=== PATIENT | female | born 1955 | race Caucasian/White ===

== ENCOUNTER 2016-11-23 09:25 | Emergency (ER) | payer OTHER ==
[~2016-11-23] VITALS: Ht 165.1 cm; Wt 88.6 kg
[~2016-11-23 09:25] MED LIST: ASPI-973 PO; BUSP30TA2 PO; INSLIS SUBQ; INSU100V7 SUBQ; LISI-610 PO; LORA10CA PO; MULT-1018 PO; OMEG-38 PO; OMPR20CCR PO
[2016-11-23 09:35] VITALS: BP 137/86; PULSE 103; RESP 16; O2SAT 99
--- NOTE | 2016-11-23 09:59 | ED.REPORT ---
HPI-General Illness Date of Service November 23, 2016 ED Provider: Kwabena Hughes DO Pt is a 61 y.o. female with a hx of DM, GERD, partial pancreatectomy, splenectomy, cholecystectomy, gastric bypass, HTN, and HLD who presents to the ED c/o three episodes of hematochezia onset 12 hours ago. Pt describes the color as a deep red, she states similar to her menses. She denies abdominal and rectal pain. She also reports that her DM has been uncontrolled recently and she has recorded elevated BG's for the past few days. She reports taking 1 baby ASA daily. Nursing Notes Stated Complaint: BLOODY STOOL Chief Complaint: Female Abdominal Pain Nursing Notes Reviewed: Yes Allergies: Coded Allergies: Penicillins (Verified Allergy, Unknown, nausea, 07/10/15) Uncoded Allergies: SOME TAPES, PAPER OK (Adverse Reaction, Unknown, 01/07/06) Scheduled Aspirin (Aspirin) 81 Mg Tablet 81 MG PO DAILY Buspirone (Buspirone) 30 Mg Tablet 30 MG PO DAILY Insulin Glargine (Lantus U100 Insulin Vial) 100 Unit/Ml Vial 20 UNIT SUBQ am Insulin Glargine (Lantus U100 Insulin Vial) 100 Unit/Ml Vial 5 UNIT SUBQ HS Insulin Human Lispro (HumaLOG U100 Insulin Vial) 100 Unit/Ml Unit 4 UNIT SUBQ HS Check blood sugars before meals and at bedtime. Use correction factor only before meals. Blood Sugar Lispro Correction: <151, 0 units; 151-175, 1 unit; 176-200, 2 units; 201-225, 3 units; 226-250, 4 units; 251-275, 5 units; 276-300 , 6 units; 301-325, 7 units; 326-350, 8 units; 351-375, 9 units; 376-400, 10 units; >400, 12 units. Lisinopril (Zestril) 10 Mg Tablet 10 MG PO DAILY Loratadine (Claritin) 10 Mg Capsule 10 MG PO DAILY Multivitamin (Multi Vitamin Daily) 1 Each Tablet 1 EACH PO DAILY [place]-3/Dha/Epa/Fish Oil (Fish Oil 1,000 mg Softgel) 1 Each Capsule 1 EACH PO DAILY Omeprazole (Prilosec) 20 Mg Capcr 20 MG PO DAILY Scheduled PRN Insulin Human Lispro (HumaLOG U100 Insulin Vial) 100 Unit/Ml Unit 2-4 UNIT SUBQ am PRN PRN per sliding scale Check blood sugars before meals and at bedtime. Use correction factor only before meals. Blood Sugar Lispro Correction: <151, 0 units; 151-175, 1 unit; 176-200, 2 units; 201-225, 3 units; 226-250, 4 units; 251-275, 5 units; 276-300 , 6 units; 301-325, 7 units; 326-350, 8 units; 351-375, 9 units; 376-400, 10 units; >400, 12 units. General Time Seen by MD: 09:58 Chief Complaint Other (Hematochezia) Hx Obtained From: Patient Arrived By: Walk-in Sudden in Onset?: Yes Onset Occurred: 9 - 12 hours ago Symptom Duration: Since onset Severity: Current: No pain currently Severity: Maximum: No pain Recent Healthcare: No recent doctor visit, No recent hospitalization Similar Sx Previous: No Past Medical History Past Medical History Reports: Diabetes mellitus, GERD, Hyperlipidemia, Hypertension Reports: Depression Past Surgical History Partial pancreatectomy Splenectomy Hernia Left shoulder Reports: Cholecystectomy Reports: Gastric bypass Smoking History Never Smoker Review of Systems Elevated BG Full Review of Systems GI: Reports: Diarrhea, Hematochezia, Denies: Abdominal pain, Rectal pain Complete sys rev & neg: except as marked. Physical Exam Vital Signs Vital Signs Date Time Temp Pulse Resp B/P Pulse Ox O2 Delivery O2 Flow Rate FiO2 11/23/16 13:29 36.6 103 16 115/86 99 Room Air 11/23/16 12:27 115/86 11/23/16 12:26 94/61 116/81 11/23/16 09:35 36.6 103 16 137/86 99 Room Air Initial VS: Reviewed Head / Eyes: Atraumatic, Normocephalic, PERRL Extremities: Vascular intact, Neuro intact Skin: Warm, Dry, No cyanosis Neurologic: Alert, Oriented, Nonfocal Psychiatric: Mood/affect normal, Behavior normal, Normal thought content General/Constitutional: Awake, Alert, No acute distress, Well appearing, Well developed, Well hydrated, Well nourished, Not toxic appearing Respiratory / Chest: Atraumatic, Breath sounds NL, Breath sounds = bilat, No respiratory distress Cardiovascular: Heart rate NL, Regular rhythm, Heart sounds NL, Peripheral circulation NL Abdomen: Soft, Non-tender, No guarding, No rebound, No distention Trauma - General: Positive: Ecchymosis (from injections) Rectum / Perineum: No gross blood Rectal for Blood: Positive: Blood - occult heme + Rectum / Perineum Abnl: Positive: Hemorrhoid external, Negative: Hemorrhoid inflamed, Hemorrhoid internal No palpable internal hemorrhoids Dark red/black blood on gloved finger Interpretation & Diagnostics Lab Results Interpretation Result Diagram: 11/23/16 1200 11/23/16 1030 Test 11/23/16 10:30 11/23/16 11:39 11/23/16 12:00 White Blood Count 7.1th/mm3 (3.8-10.1) Red Blood Count 4.03mil/mm3 (3.90-5.20) Mean Corpuscular Volume 83.9fL (81-100) Mean Corpuscular Hemoglobin 27.0pg (27.0-35.0) Mean Corpuscular Hemoglobin Concent 32.2% (32.0-37.0) Red Cell Distribution Width 16.9% (12.3-15.4) Platelet Count 329bil/L (150-400) Neutrophils (%) (Auto) 56.0% (40-74) Lymphocytes (%) (Auto) 24.5% (14-46) Monocytes (%) (Auto) 12.2% (4-12) Eosinophils (%) (Auto) 6.1% (0-5) Basophils (%) (Auto) 1.1% (0-3) Prothrombin Time 9.9sec (8.1-12.5) Prothromb Time International Ratio 0.93ratio Sodium Level 138mEq/L (134-144) Potassium Level 4.8mEq/L (3.5-5.2) Chloride Level 101mEq/L (97-108) Carbon Dioxide Level 22mmol/L (18-29) Blood Urea Nitrogen 21mg/dL (6-24) Creatinine 0.57mg/dL (0.57-1.00) Estimat Glomerular Filtration Rate 156mL/min (>59) Glucose Level 274mg/dL (60-99) Calcium Level 9.4mg/dL (8.5-10.1) Magnesium Level 1.9mg/dL (1.6-2.6) Total Bilirubin 0.5mg/dL (0.0-1.2) Aspartate Amino Transf (AST/SGOT) 23U/L (0-50) Alanine Aminotransferase (ALT/SGPT) 14U/L (0-32) Alkaline Phosphatase 71U/L (25-165) Total Protein 6.9g/dL (6.4-8.4) Albumin 3.9g/dL (3.4-5.0) Lipase 13U/L (13-60) Urine Color Yellow (YELLOW) Urine Appearance Clear (CLEAR,HAZY) Urine pH 5.0 (5.0-8.0) Urine Specific [place] 1.024 (1.003-1.035) Urine Protein Negativemg/dL (NEG,TRACE) Urine Glucose (UA) 100mg/dL (NEGATIVE) Urine Ketones Negativemg/dL (NEGATIVE) Urine Occult Blood Negative (NEGATIVE) Urine Nitrite Negative (NEGATIVE) Urine Bilirubin Negative (NEGATIVE) Urine Urobilinogen Normalmg/dL (NORMAL) Urine Leukocyte Esterase Negative (NEGATIVE) Urine RBC 0-2/hpf (0-2) Urine WBC 0-5/hpf (0-5) Urine Epithelial Cells Moderate/hpf (NONE-MOD) Urine Crystals None seen (NONE SEEN) Urine Bacteria Few/hpf (NONE-FEW) Urine Hyaline Casts None/lpf (NONE) Urine Granular Casts None seen (NONE SEEN) Urine Waxy Casts None seen (NONE SEEN) Urine Red Blood Cell Casts None seen (NONE SEEN) Urine White Blood Cell Casts None seen (NONE SEEN) Urine Mucus None seen (None Seen) Urine Trichomonas None seen (NONE SEEN) Urine Yeast None (NONE SEEN) Urinalysis Comment None Urine Culture Reflexed Not indicated Hemoglobin 11.1g/dL (12.0-15.6) Hematocrit 35.1% (35.0-46.0) Re-Eval/Medical Decision Med Decision/Clinical Course 61-year-old female with a history of gastric bypass surgery years ago presents with melena and loose stools 3 over the past 12 hours. She denies abdominal pain. Serial hemoglobin done here was unchanged. Orthostatic vital signs were negative. Patient had no further episodes of loose stool/bowel movements. Given her clinical stability I did not feel she needed admission and emergent workup/treatment. I spoke with GI and he recommended that she follow up with Dr. 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 I also advised the patient to begin twice daily PPI, she has omeprazole home although she does not currently take it. Patient understands when to return to the ER and the importance of following up with gastroenterology. I also advised that she have her hemoglobin checked tomorrow to evaluate the severity of the bleeding, which she agrees to do Source of Hx: Old records Time of Eval: 11:49 Re-Evaluation/Progress Note: Pt rechecked. Discussed plan for repeat hemoglobin test. Time of Eval: 12:48 Re-Evaluation/Progress Note: Pt rechecked. Discussed plan for discharge, pt understands and agrees with plan. Consultation : Referral / Consult Name: Michael Harrington MD Call Returned at: 11:40 Note: Discussed pt condition with ANNETTE Pruitt. They recommend making decision to admit based on clinical judgement, if admitted they will perform endoscopy, if not admitted recommned outpatient endoscopy. Counseled Regarding: Diagnosis, Lab results, Need for follow-up, When/why to return to ED Discharge & Departure Primary Impression: Upper GI bleed Additional Impression: GERD (gastroesophageal reflux disease) Esophagitis presence: esophagitis presence not specified Qualified Code: K21.9 - Gastro-esophageal reflux disease without esophagitis Disposition: Home Discharge Condition All VS Reviewed: Yes Condition: Improved Patient Instructions: Gastrointestinal Bleeding (GEN) Additional Instructions: Thank you for entrusting us with your care today. I believe you have an upper gastrointestinal bleed. You lab results show that your hemoglobin is stable, which is reassuring. I consulted with Dr. Harrington, one of Dr. Burk's partners, about your current condition. He recommended that you follow-up next week unless your symptoms worsen. Call Dr. Burk's office on Friday to schedule an appointment. Take an Prilosec 40 mg twice daily until your follow-up appointment. Blood can act as a laxative so if you notice an increase in diarrhea please return. Also seek care for increased lightheadedness, bleeding, abdominal pain, or any new or worsening symptoms. I also recommend coming in tomorrow to urgent care or the ER for repeat blood counts if you continue to have bleeding. If you are more anemic you will likely need admission. Referrals: Sundar Soto MD (PCP) Scribe Attestation Portions of this note were transcribed by Daria Becker. IDr. Hughes personally performed the history, physical exam and medical decision-making; I reviewed and confirmed the accuracy of the information in the transcribed note. Signed by: Destiny Larsen, 11/23/16 and 1300 copies to: Sundar Soto MD, Gary R DO November 23, 2016 09:59 DARIA BECKER November 23, 2016 10:15
[2016-11-23 10:43] LABS: BASOPHILS % (AUTO) 1.1 % (0-3); EOSINOPHILS % (AUTO) 6.1 % (0-5); MONOCYTES % (AUTO) 12.2 % (4-12); Mean Corpuscular Volume 83.9 fL (81-100); Platelet Count 329 bil/L (150-400)
[2016-11-23 10:55] LABS: INR 0.93 ratio
[2016-11-23 11:09] LABS: Magnesium 1.9 mg/dL (1.6-2.6)
[2016-11-23 12:26] VITALS: BP_SYST 116; BP_SYST 94; BP_DIAS 61; BP_DIAS 81
[2016-11-23 12:27] VITALS: BP 115/86
[2016-11-23 12:45] LABS: APPEARANCE,URINE CLEAR (CLEAR,HAZY); COLOR,URINE YELLOW (YELLOW); OCCULT BLOOD,URINE NEGATIVE (NEGATIVE); UROBILINOGEN,URINE NORMAL (NORMAL)
[2016-11-23 13:29] VITALS: BP 115/86; PULSE 103; RESP 16; O2SAT 99
[2016-12-27] MEDS ORDERED: ATRV10T PO (08:58)
== END 2016-11-23 13:31 | disposition home or self-care (01) ==
LOC: SED 09:25
DX: K92.2 Gastrointestinal hemorrhage, unspecified (principal); K21.9 Gastro-esophageal reflux disease without esophagitis; E11.9 Type 2 diabetes mellitus without complications; I10 Essential (primary) hypertension; E78.5 Hyperlipidemia, unspecified; F32.9 Major depressive disorder, single episode, unspecified; Z90.411 Acquired partial absence of pancreas; Z90.81 Acquired absence of spleen; Z98.84 Bariatric surgery status; Z90.49 Acquired absence of other specified parts of digestive tract; Z79.4 Long term (current) use of insulin; Z79.82 Long term (current) use of aspirin; Z88.0 Allergy status to penicillin

== ENCOUNTER 2016-12-30 09:44 | Day surgery (SDC) | payer OTHER ==
[~2016-12-30] VITALS: Ht 165.1 cm; Wt 88.0 kg
[~2016-12-30 09:44] MED LIST changes: +ATRV10T PO; +Sodium Chloride LOK Flush 10 mL Syringe IV PRN; +fentaNYL-PF 50 mCg/mL 2 mL Inj IVPUSH PRN
[2016-12-30 10:08] VITALS: BP 143/83; PULSE 90; RESP 16; O2SAT 96
[2016-12-30] MEDS ORDERED: 0.9% Sodium Chloride 1,000 ML IV ONE (11:26)
[2016-12-30 11:37] VITALS: BP 142/79; PULSE 78; RESP 16; O2SAT 97
--- NOTE | 2016-12-30 11:38 | PCM.ENDEGD ---
EGD Date of Service: Dec 30, 2016 Physician Michael Harrington MD Pre Procedure Diagnosis: Anemia and Blood in the stools Post Procedure Dx & Findings: An anastomotic ulcer esophageal ulcer Procedure Esophagogastroduodenoscopy PROCEDURE IN DETAIL: After proper sedation, Olympus video endoscope was inserted into patient's mouth and esophagus was successfully intubated. Scope introduced esophagus. Esophagus showed normal shiny whitish mucosa consistent with squamous cell component. Z line was noted at 40 cm from the incisors. Few linear superficial ulcers noted with clean base. Biopsies obtained. Scope further advanced to the stomach. Evidence of antrectomy noted. An anastomotic ulcer noted. This was clean base. Biopsies were obtained. Retroflexion could not be performed due to the size of the stomach. Scope further advanced to the efferent and later to the afferent loops of small bowel. Small intestines revealed normal villous structures with normal appearing folds without any mass ulcer erosion. Impression Esophageal ulcers An anastomotic ulcer Possible source of anemia Recommendation Continue PPI. Presedation Assessment Risks and Benefits Informed consent was obtained from the patient after all risks and benefits including but not limited to drug reaction, infection, pain, bleeding, perforation, as well as alternatives were discussed. Patient monitoring Continuous pulse oximetry, cardiac monitoring, blood pressure monitoring, IV access, and oxygen at 2L per nasal cannula. Periprocedural Fentanyl: Fentanyl 150mcg Incrementally Midazolam: Midazolam 7mg Incrementally Complications There were no periprocedural complications identified. Post Procedure Plan Post Procedure Recommendations 1. Restrict activities today. 2. Resume normal activities in the morning. 3. Resume medications. 4. GERD behavioral modification: - Avoid fatty, acidic, spicy, large meals - Do not lie down after meals - Do not eat or drink anything for at least 2 1/2 hours before going to bed at night - Discontinue tobacco and alcohol - Decrease or avoid caffeine - Avoid chocolate and mints - Decrease weight - Avoid aspirin and non steroidal anti-inflammatory agents (NSAID) such as Aleve, Advil, Mobic, Naproxen, Ibuprofen, etc 5. Add proton pump inhibitor. Take 30 minutes before 1st meal of the day. 6. Patient informed of normal post procedure side effects as bloating, drowsiness, blood streaking in the stool 7. If gastric biopsy reveal H.pylori, continue with appropriate treatment 8. If small bowel biopsy reveals celiac, continue with appropriate treatment 9. Please don't hesitate to call me with any questions Michael Harrington MD Dec 30, 2016 11:38
--- NOTE | 2016-12-30 11:41 | PCM.ENDCOL ---
Colonoscopy Date of Service: Dec 30, 2016 Physician Michael Harrington MD Pre Procedure Diagnosis: Anemia blood in the stools Post Procedure Dx & Findings: Polyp diverticula hemorrhoids Procedure Colonoscopy Prep adequate Withdrawal time 13 minutes After unremarkable rectal examination the Olympus video colonoscope was inserted patient's anal canal and was advanced to cecum. Landmarks were identified including the ileocecal valve and appendiceal orifice. Scope further advanced to terminal ileum. Advanced 10 cm. Visualized terminal ileum show normal healthy villous structures without ulcer mass erosions. Scope was withdrawn systematically. Visualized colonic mucosa showed healthy shiny mucosa with normal healthy-appearing vasculature. In the sigmoid colon there was a 3 mm polyp which was removed completely using cold snare. Few small to medium-sized diverticula noted in the sigmoid colon. In the rectum retroflexion was done which showed hemorrhoids. Anal canal was inspected carefully on the way out and hemorrhoids noted. Impression Polyp 1 status post complete removal Diverticuli Hemorrhoids Recommendation Repeat colonoscopy 5 years Diverticula diet Presedation Assessment Risks and Benefits Informed consent was obtained from the patient after all risks and benefits including but not limited to drug reaction, infection, pain, bleeding, perforation, as well as alternatives were discussed. Patient monitoring Continuous pulse oximetry, cardiac monitoring, blood pressure monitoring, IV access, and oxygen at 2L per nasal cannula. Complications There were no periprocedural complications identified. Post Procedure Plan Post Procedure Recommendations 1. Restrict activities today. 2. Resume normal activities in the morning. 3. Resume medications. 4. Patient informed of normal post procedure side effects as bloating, drowsiness, blood streaking in the stool. 5. average risk CRCS. If colon polyps come back as: -Hyperplastic- can repeat colonoscopy in 10 years -Tubular adenoma- repeat colonoscopy in 5 years -Tubulovillous/villous adenoma- repeat colonoscopy in 3 years -If any dysplasia- return to clinic as soon as possible 6. Please don't hesitate to call me with any questions. Michael Harrington MD Dec 30, 2016 11:41
[2016-12-30 11:47] VITALS: BP 128/77; PULSE 75; RESP 16; O2SAT 98
--- NOTE | 2016-12-31 15:23 | PATH ---
SURGICAL PATHOLOGY Attending Physician:Michael Harrington M.D. CASE STATUS: Signed Out PATIENT NAME: ASHVIN HEWITT PID: [id number] : 1955 DATE COLLECTED:12/30/2016 22:27 SPECIMEN: 1: Gastric, Biopsy 2: Esophagus, Biopsy 3: Colon, Polyp CLINICAL HISTORY: 1). ANASTOMOSIS ULCER 2). ESOPHAGUS BIOPSY 3). SIGMOID COLON POLYP X1 FINAL DIAGNOSIS: 1.SPECIMEN DESIGNATED ANASTOMOSIS ULCER: FRAGMENT OF MUCOSA WITH SEVERE ACUTE INFLAMMATION AND ULCERATION (SEE COMMENT). Negative for atypia and malignancy. 2.ESOPHAGUS BIOPSY: SQUAMOUS MUCOSA AND GASTRIC CARDIA-TYPE MUCOSA WITH CHRONIC INFLAMMATION AND REACTIVE EPITHELIAL CHANGES. NEGATIVE FOR SPECIALIZED METAPLASIA OF GASTON' S-TYPE ESOPHAGUS. Negative for dysplasia and malignancy. 3.SIGMOID COLON POLYP: TUBULAR ADENOMA INVOLVING BOTH BIOPSY FRAGMENTS. ICD10 D12.5 NOTE: The mucosal fragment present in part 1 is altered severely by the acute inflammation and ulceration, thus making it difficult to ascertain its exact anatomic location. The epithelial cells appear to be most consistent with gastric origin. Clinical correlation is suggested. There is no evidence for malignancy. GROSS DESCRIPTION: Received are three formalin-filled containers, each labeled with the patient' s name. 1. Received in formalin, labeled with the patient' s name and "anastomosis ulcer biopsy", is one fragment of martinez, soft tissue measuring 0.1 x 0.1 x 0.1 cm. The fragment is totally submitted in cassette 1A. 2. Received in formalin, labeled with the patient' s name and "esophagus biopsy", are two fragments of martinez, soft tissue ranging in size from 0.1 x 0.1 x 0.1 cm to 0.2 x 0.2 x 0.1 cm. All fragments are totally submitted in cassette 2A. 3. Received in formalin, labeled with the patient' s name and "sigmoid colon polyp", are two fragments of martinez, soft tissue ranging in size from 0.2 x 0.1 x 0.1 cm to 0.2 x 0.2 x 0.2 cm. All fragments are totally submitted in cassette 3A. ([id number]) MICRO DESCRIPTION: See diagnosis. ICD-9 CODES: CPT CODES: 1: 81270 2: 44392 3: 58651 Electronically Signed Out Adriel Castillo MD [facility] [address], [place] [address] Technical component performed at [facility], [address], [place], [address]
== END 2016-12-30 23:59 | disposition home or self-care (01) ==
LOC: END 09:44
PROVIDERS: ATTEND Internal Medicine
DX: D64.9 Anemia, unspecified (principal); D12.5 Benign neoplasm of sigmoid colon; K57.30 Diverticulosis of large intestine without perforation or abscess without bleeding; K64.8 Other hemorrhoids; K22.10 Ulcer of esophagus without bleeding; K63.89 Other specified diseases of intestine; E11.8 Type 2 diabetes mellitus with unspecified complications; J45.909 Unspecified asthma, uncomplicated; I10 Essential (primary) hypertension; I83.90 Asymptomatic varicose veins of unspecified lower extremity; F32.9 Major depressive disorder, single episode, unspecified; K21.9 Gastro-esophageal reflux disease without esophagitis; F41.9 Anxiety disorder, unspecified; Z79.4 Long term (current) use of insulin; Z79.51 Long term (current) use of inhaled steroids; Z79.82 Long term (current) use of aspirin
CPT/HCPCS: 43239; 45385; 99153; G0500; J7030